=== PATIENT | female | born 1945 | race Caucasian/White ===

== ENCOUNTER → 2017-06-02 07:35 | Day surgery (SDC) | payer MEDICARE, BC ==
[~2017-06-02 07:35] MED LIST: Buffered Lidocaine 0.9% SYRIN* 5 ML/SYR SYRINGE INTRADERM ONE; Buffered Lidocaine 0.9% SYRIN* 5 ML/SYR SYRINGE ONE; Chloroprocaine 2%* 20 ML VIAL ONE; Dexamethasone IV* 4 MG/ML 1 ML (4 MG) ONE; EPHEDrine (Pressors)* 50 MG/ML VIAL ONE; Famotidine IV* 10 MG/ML 2 ML (20 mg) IV ONE; Famotidine IV* 10 MG/ML 2 ML (20 mg) ONE; Flumazenil* 0.1 MG/ML 5 ML MDV ONE; KETAMINE HCL* 50 MG/ML 10 ML VIAL ONE; Ketorolac INJ* 30 MG/ML 1 ML VIAL ONE; Lidocaine 2% PF * 5 ML VIAL ONE; Midazolam* 1 MG/ML 5 ML VIAL (5 MG) ONE; Morphine INJ* 2 MG/ML 1 ML SYRINGE IV PRN; PROCHLORPERAZINE INJ 5 MG/ML 2 ML VIAL IV PRN; PROCHLORPERAZINE INJ 5 MG/ML 2 ML VIAL ONE; Phenylephrine INJ* 10 MG/ML 1 ML VIAL (10 MG) ONE; Propofol* 10 MG/ML 20 ML BTL IV PUSH ONE; fentaNYL* 50 MCG/ML 2 ML VIAL (100 MCG VIAL) IV PRN; oxyCODONE/Acetamin 5/325 MG* TAB PO PRN
[2017-06-02 08:17] LABS: Hematocrit 40 % (35-47); Hemoglobin 13.4 g/dl (12.0-16.0); Mean Corpuscular HGB Conc 34 g/dl (31-36); Mean Corpuscular Hemoglobin 30 pg (27-31); Mean Corpuscular Volume 88 fL (80-97); Mean Platelet Volume 9 um3 (7.4-10.4); Red Blood Count 4.52 10^6/ul (4.0-5.4); Red Cell Distribution Width 14 % (10.5-15); White Blood Count 5.6 10^3/ul (3.5-10.8)
[2017-06-02 13:05] VITALS: BP 113/52
--- NOTE | 2017-06-02 22:34 | OP ---
DATE OF OPERATION: 06/02/17 [facility] DATE OF : 47 SURGEON: Dr. Villafana. ANESTHESIOLOGIST: Dr. Hale. ANESTHESIA: Spinal with sedation. PRE-OP DIAGNOSIS: Postmenopausal bleeding, cervical stenosis. POST-OP DIAGNOSIS: Postmenopausal bleeding, cervical stenosis. OPERATIVE PROCEDURE: Dilation, hysteroscopy, curettage. ESTIMATED BLOOD LOSS: Minimal, less than 20 cc. FINDINGS: Small anteverted uterus. No adnexal masses palpated. The cervix was stenotic. The uterus sounded to 6. There was tissue that appeared polypoid in nature arising from the fundus, protruding to the level of the internal cervical os. COMPLICATIONS: None. COUNTS: Sponge, lap, and needle count were correct x2. CONDITION: The patient was brought to recovery room, awake and in stable condition. DESCRIPTION OF PROCEDURE: The patient was brought to the operating room. When anesthesia was found to be adequate, the patient was prepped and draped in the usual sterile fashion in the dorsal lithotomy position. Time-out was performed , and exam under anesthesia was performed The weighted speculum was placed in the vagina and the anterior lip of the cervix was grasped with a single-tooth tenaculum. It was difficult to dilate the cervix, an os finder was used and then the cervix was gently dilated with a graduated Mcdonald dilators. The hysteroscope was introduced with the above findings noted. The polyp could not be grasped with the polyp forceps. A curettage was performed and polypoid tissue was retrieved. When the hysteroscope was reintroduced, the polyp was no longer seen. The hysteroscope was removed. The single-tooth tenaculum was removed from the anterior lip of the cervix. Excellent hemostasis was noted. All instruments were removed from the vagina and the patient was brought to the recovery room awake and in stable condition. [id number] #: [id number] [facility]ERN[facility]el
== END | disposition home or self-care (01) ==
LOC: OR 07:35
PROVIDERS: ATTEND Obstetrics & Gynecology
DX: D25.9 Leiomyoma of uterus, unspecified (principal); N85.8 Other specified noninflammatory disorders of uterus; N95.0 Postmenopausal bleeding; N88.2 Stricture and stenosis of cervix uteri; Z88.6 Allergy status to analgesic agent; Z88.1 Allergy status to other antibiotic agents; Z88.2 Allergy status to sulfonamides
CPT/HCPCS: 36415; 85025; 86850; 86900; 86901; 88305; J0780; J1100; J1885; J2250; J2400; J2704